=== PATIENT | female | born 1975 | race Two or more races ===

== ENCOUNTER 2024-04-30 07:45 | Day surgery (SDC) | payer MEDICAID, SELFPAY ==
[2024-04-29 14:18] VITALS: BMI 22.8
[2024-04-29 16:55] LABS: HCG Qualitative,Urine Negative
[2024-04-30] VITALS (14 sets, daily range): BP systolic 111–145; BP diastolic 50–84; PULSE 60–87; RESP 14–22; TEMP 36.7–37.2; O2SAT 97–100; BMI 22.7
[2024-04-30] MEDS: BENZOCAINE 20% (Hurricaine) SPRAY 1 DOSE TOP (09:12)
[2024-04-30] MEDS: DiphenhydrAMINE INJ 50 MG/ML VIAL 25 MG IV (09:12)
[2024-04-30] MEDS: fentaNYL CIT INJ 50 mCg/ML AMP 2ML (ASD USE ONLY) IV (09:18)
[2024-04-30] MEDS: MIDAZOLAM INJ 1 MG/ML VIAL 2 ML (ASD USE ONLY) 2 MG IV (09:18)
== END 2024-04-30 10:45 | disposition home or self-care (01) ==
PROVIDERS: PCP Physician Assistant; Referring Provider Internal Medicine Gastroenterology; Visit Provider Internal Medicine Gastroenterology
PROC: 0DBE8ZX Excision of Large Intestine, Via Natural or Artificial Opening Endoscopic, Diagnostic (ICD-10-PCS; CPT 45380; principal; 2024-04-30 13:45)
PROC: (CPT 43239; 2024-04-30 13:45)
DX: K29.70 Gastritis, unspecified, without bleeding (principal); K29.50 Unspecified chronic gastritis without bleeding; K31.89 Other diseases of stomach and duodenum
CPT/HCPCS: 43239; 81025; A4649; J1200; J2250; J3010; A9270